=== PATIENT | female | born 1970 | race African-American/Black ===

== ENCOUNTER 2024-07-03 04:09 | Observation (INO) ==
--- NOTE | 2024-07-03 04:38 | Emergency Department Note ---
HPI - General Adult General Chief complaint: Abdominal Pain Stated complaint: ABDOMINAL PAIN Time Seen by Provider: 07/03/24 04:32 Source: patient Mode of arrival: ambulance Limitations: no limitations History of Present Illness HPI narrative: This is a 54 year old female patient that presents to the ER with c/o upper abdominal pain that radiates into her chest. Patinet denies any SOB, back pain, fever, cnills, numbness, tingiing, weakness or N/V/D Onset (ago): hour(s) (2) Location: Reports abdomen Radiation: Reports other (chest) Severity: mild Quality: Reports stabbing Pain Consistency: Reports constant Relieving factors: Reports none Exacerbating factors: Reports none Associated symptoms: Reports denies other symptoms Treatments prior to arrival: Reports none Related Data Allergies Allergy/AdvReac Type Severity Reaction Status Date / Time No Known Drug Allergies Allergy Verified 07/03/24 04:33 Review of Systems Status of ROS 10 or more systems reviewed and unremark able except as noted in history and below Constitutional Denies: fever, chills, change in weight, fatigue, malaise, night sweats or change in sleep pattern Eyes Denies: change in vision, blurry vision, blind spots, light sensitivity or eye discomfort Ears, nose, mouth, and throat Denies: throat pain, neck pain, throat swelling, difficulty swallowing, hoarseness, mouth pain or swelling of lips/tongue Cardiovascular Reports: chest pain; Denies: palpitations, edema, swelling of feet/ankles, lightheadedness or shortness of breath with exertion Respiratory Denies: shortness of breath, cough, wheezing, stridor, pain on inspiration or change in phlegm color Gastrointestinal Reports: abdominal pain; Denies: nausea, vomiting, coffee grounds in vomit, heartburn or diarrhea Genitourinary Denies: painful urination, urinary frequency, urinary urgency, urinary incontinence or blood in urine Musculoskeletal Denies: back pain, neck pain, extremity pain, extremity swelling or joint pain Integumentary/Breast Denies: rash, itching, redness, skin pain or skin tenderness Neurological Denies: headache, numbness in extremities, weakness in extremities or lack of coordination Psychiatric Denies: anxiety, mood swings, panic attacks, change in sleep pattern or hopelessness Endocrine Denies: excessive urination, excessive thirst, fatigue or cold intolerance Hematologic/Lymphatic Denies: easy bruising, easy bleeding or enlarged lymph nodes Allergic/Immunologic Denies: hives, throat swelling, tongue swelling, facial swelling or wheezing [facility]SH [facility] Medical History (Updated 07/03/24 @ 04:43 by Chiqui Jacobsen RN) Ectopic Fibromyalgia Colitis History of pulmonary embolism Pancreatitis Ascites Hypertension Acid reflux Seasonal allergies Anxiety Depression Surgical History (Updated 07/03/24 @ 04:43 by Chiqui Jacobsen RN) H/O exploratory laparotomy History of cholecystectomy Social History Smoking status: current every day smoker Within the past year, how often did you have a drink containing alcohol: never Score interpretation: A score less than 3 is consistent with normal alcohol consumption. Non-prescribed substance use: denies use Problems where you live: no known problems Exam Constitutional: normal general appearance and no apparent distress Vital Signs - 24 hr 07/03/24 04:09 07/03/24 04:09 Temperature 97.8 F Pulse Rate 88 Respiratory Rate 18 Blood Pressure 125/83 Pulse Oximetry 100 100 Oxygen Delivery Me thod Room Air Room Air HENMT: normocephalic, head/scalp atraumatic, hearing grossly normal bilaterally, external ears normal, nasal mucous membranes normal, external nose normal, oral mucous membranes normal and oropharynx normal Eyes: PERRL, EOMs intact bilaterally, conjunctivae normal and no scleral icterus Neck/C-Spine: visual inspection normal and trachea midline Lymph: no lymphadenopathy noted Chest: inspection of chest normal Respiratory: breath sounds equal bilaterally, normal respiratory effort, clear to auscultation bilaterally, no wheezes, no rales, no retractions and no use of accessory muscles Cardiovascular: normal heart rate noted, regular rhythm noted, no gallop, no rub, no murmur, no JVD, no clicks, peripheral pulses 2+ throughout and no additional abnormal heart sounds Gastrointestinal: abdomen normal to inspection, abdomen soft to palpation, tender to palpation (diffuse tenderness), nontender to percussion, nondistended, normoactive bowel sounds, no hepatosplenomegaly, no masses, no pulsatile mass, no ascites and no hernia Genitourinary: no CVA tenderness Back/Pelvis: spine normal to inspection Extremities: normal to inspection, normal to palpation, no tenderness, full ROM, no joint enlargement and no deformity Neurology: no movement abnormality noted, no focal motor deficit noted, no sensory deficits noted, speech normal, coordination normal, no fasciculations noted and GCS normal Psychiatry: mental status grossly normal, oriented x3, thought process normal, cooperative and affect normal Skin: skin color normal Course Course Hospital Course: 530: Spoke to Dr Dove and he agrees to admit patient for pancreatitis for further medical evaluation and treatment with pain control. VSS, no s/s of acute distress noted Vital Signs Vital signs: Vital Signs Temperature 97.8 F 07/03/24 04:09 Pulse Rate 88 07/03/24 04:09 Respiratory Rate 18 07/03/24 04:09 Blood Pressure 125/83 07/03/24 04:09 Pulse Oximetry 100 07/03/24 04:09 Oxygen Delivery Method Room Air 07/03/24 04:09 Temperature 97.8 F 07/03/24 04:09 Pulse Rate 88 07/03/24 04:09 Respiratory Rate 18 07/03/24 04:09 Blood Pressure 125/83 07/03/24 04:09 Pulse Oximetry 100 07/03/24 04:09 Oxygen Delivery Method Room Air 07/03/24 04:09 Medical Decision Making Differential Diagnosis Differential Diagnosis: viral illness Medical Records Medical records reviewed: Yes I reviewed the patient's medical records Lab Data Lab results reviewed: Yes I reviewed the patient's lab results Labs: Lab Results 07/03/24 07/03/24 Range/Units 04:15 04:50 WBC 9.5 H (4.3-9.3) K/uL RBC 4.8 (4.00-5.50) M/uL Hgb 12.1 L (12.5-15.8) gm/dL Hct 37.4 (35.9-46.7) % MCV 78.4 L (81.0-93.7) fl MCH 25.4 L (27.6-32.2) pg MCHC 32.4 L (33.1-35.3) g/dl RDW 18.1 H (11.4-14.2) % Plt Count 412 H (152-353) K/uL MPV 8.1 (6.9-10.8) fl Gran % 75.4 H (47.8-71.3) % Lymph % (Auto) 18.7 L (20.0-43.0) % [place] % (Auto) 4.0 (3.6-9.8) % Eos % (Auto) 1.3 (0.4-2.8) % Baso % (Auto) 0.6 (0.1-0.85) Lymph # (Auto) 1.8 (1.1-3.1) [place] # (Auto) 0.4 L (1.1-3.1) Eos # (Auto) 0.1 (0.0-0.2) Baso # (Auto) 0.1 (0.0-0.1) Absolute Gran (auto) 7.2 H (2.3-6.0) Urine Color Yellow (STRAW/YELL.) Urine Appearance Clear (CLEAR) Ur Specific [place] 1.010 (1.001-1.035) Urine Protein Negative (NEGATIVE) Urine Glucose (UA) Normal (NORMAL) Urine Ketones Negative (NEGATIVE) Urine Occult Blood Negative (NEG - TRACE) Urine Nitrite Negative (NEGATIVE) Urine Bilirubin Negative (NEGATIVE) Urine Urobilinogen Normal (NORMAL) Ur Leukocyte Esterase Negative (NEGATIVE) Fluid pH 7.5 (5 - 9) ECG Data Attestation: I have reviewed the pertinent ECG results. Discharge Plan Discharge Patient Disposition: Admitted As Observation Condition: Stable Chief Complaint: Abdominal Pain Clinical Impression: Pancreatitis Print Language: Bengali Referrals: Jakob Palafox [Primary Care Provider] - Time of Disposition: 05:34
[2024-07-03] MEDS: MORPHINE SULFATE 4 MG/ML CARTRIDGE IVP ONE (04:52)
[2024-07-03] MEDS ORDERED: ONDANSETRON HCL/PF 4 MG/2 ML VIAL ONE (04:56)
[2024-07-03] MEDS: ONDANSETRON HCL/PF 4 MG/2 ML VIAL IVP ONE ×2 (04:58→05:38)
[2024-07-03] MEDS: ACETAMINOPHEN 500 MG TABLET PO ONE (05:00)
[2024-07-03 05:03] LABS: PH BODY FLUID EXCP BLOOD 7.5 (5 - 9); Urine Appearance CLEAR (CLEAR); Urine Blood NEGATIVE (NEG - TRACE); Urine Color YELLOW (STRAW/YELL.); Urine Urobilinogen Normal (NORMAL)
[2024-07-03 05:08] LABS: Basophils #(Absolute) Auto 0.1 (0.0-0.1); Basophils%(Percent) Auto 0.6 (0.1-0.85); Eosinophils#(Absolute)Auto 0.1 (0.0-0.2); Eosinophils%(Percent) Auto 1.3 % (0.4-2.8); Granulocytes % - Auto 75.4 % (47.8-71.3); Granulocytes#(Absolute)- Auto 7.2 (2.3-6.0); Hematocrit 37.4 % (35.9-46.7); Mean Corpuscular Volume 78.4 fl (81.0-93.7); Monocytes #(Absolute)- Auto 0.4 (1.1-3.1); Platelet Count 412 K/uL (152-353); White Blood Count 9.5 K/uL (4.3-9.3)
[2024-07-03] MEDS ORDERED: ACETAMINOPHEN 500 MG TABLET PO PRN (06:24)
[2024-07-03] MEDS ORDERED: bisacodyL 10 MG SUPP.RECT PR PRN (06:24)
[2024-07-03] MEDS ORDERED: MAGNESIUM, ALUMINUM HYDROXIDE 30 ML ORAL.SUSP PO PRN (06:24)
[2024-07-03 07:20] LABS: Potassium 3.7 mmol/L (3.6-5.2)
[2024-07-03 08:11] VITALS: RESP 19; TEMP 97.9
[2024-07-03] MEDS: 0.9 % SODIUM CHLORIDE 1000 ML 1,000 ML IV SCH (08:50)
--- NOTE | 2024-07-03 10:55 | Internal Medicine H&P ---
Internal Medicine - H&P: HPI History of Present Illness Chief complaint: PANCREATITIS Narrative: Admitted from home through the ER due to nausea, vomiting, and epigastric pain. Similar cases in MAR/APR 2024 due to pancreatitis. Was advised she had high triglycerides, but uncertatin of number and only taking omega-3 fish oils. Currently reports improved nausea with continued pain. Tolerating a diet, but only limited amounts. Review of Systems Status of ROS 10 or more systems reviewed and unremark able except as noted in history and below Constitutional Denies: fever, chills, change in weight, fatigue, malaise, night sweats or change in sleep pattern Eyes Denies: change in vision, blurry vision, blind spots, light sensitivity or eye discomfort Ears, nose, mouth, and throat Denies: throat pain, neck pain, throat swelling, difficulty swallowing, hoarseness, mouth pain or swelling of lips/tongue Cardiovascular Reports: chest pain; Denies: palpitations, edema, swelling of feet/ankles, lightheadedness or shortness of breath with exertion Respiratory Denies: shortness of breath, cough, wheezing, stridor, pain on inspiration or change in phlegm color Gastrointestinal Reports: abdominal pain; Denies: nausea, vomiting, coffee grounds in vomit, heartburn, diarrhea or difficulty swallowing Genitourinary Denies: painful urination, urinary frequency, urinary urgency, urinary incontinence or blood in urine Musculoskeletal Denies: back pain, neck pain, extremity pain, extremity swelling or joint pain Integumentary/Breast Denies: rash, itching, redness, skin pain or skin tenderness Neurological Denies: headache, numbness in extremities, weakness in extremities or lack of coordination Psychiatric Denies: anxiety, mood swings, panic attacks, change in sleep pattern or hopelessness Endocrine Denies: excessive urination, excessive thirst, fatigue or cold intolerance Hematologic/Lymphatic Denies: easy bruising, easy bleeding or enlarged lymph nodes Allergic/Immunologic Denies: hives, throat swelling, tongue swelling, facial swelling or wheezing [facility] Medical History (Updated 07/03/24 @ 12:56 by Victor Hugo Dove MD) Ectopic Fibromyalgia Colitis History of pulmonary embolism Pancreatitis Ascites Hypertension Acid reflux Seasonal allergies Anxiety Depression Surgical History (Updated 07/03/24 @ 04:43 by Chiqui Jacobsen RN) H/O exploratory laparotomy History of cholecystectomy Social History Smoking status: current every day smoker Within the past year, how often did you have a drink containing alcohol: never Score interpretation: A score less than 3 is consistent with normal alcohol consumption. Non-prescribed substance use: denies use Problems where you live: no known problems Highest level of school completed/degree received: high school Meds Home Medications and Allergies Home Medications Medication Instructions Recorded Confirmed Type allopurinol 300 mg tablet 300 mg PO DAILY 07/03/24 07/03/24 History amitriptyline 50 mg tablet 50 mg PO DAILY 07/03/24 07/03/24 History escitalopram oxalate 20 mg tablet 20 mg PO DAILY 07/03/24 07/03/24 History folic acid 1 mg tablet 1 mg PO DAILY 07/03/24 07/03/24 History levocetirizine 5 mg tablet 5 mg PO DAILY 07/03/24 07/03/24 History lisinopril 20 mg tablet 20 mg PO DAILY 07/03/24 07/03/24 History metoprolol succinate 100 mg 100 mg PO DAILY 07/03/24 07/03/24 History tablet,extended release 24 hr montelukast 10 mg tablet 10 mg PO DAILY 07/03/24 07/03/24 History naltrexone 50 mg tablet 50 mg PO DAILY 07/03/24 07/03/24 History pantoprazole 40 mg tablet,delayed 40 mg PO DAILY 07/03/24 07/03/24 History release pregabalin 75 mg capsule 75 mg PO Q12H 07/03/24 07/03/24 History rivaroxaban 20 mg tablet (Xarelto) 20 mg PO DAILY 07/03/24 07/03/24 History Allergies Allergy/AdvReac Type Severity Reaction Status Date / Time No Known Drug Allergies Allergy Verified 07/03/24 04:33 Exam Constitutional: normal general appearance, no apparent distress, average body habitus, no limitations and alert Vital Signs - 24 hr 07/03/24 04:09 07/03/24 04:09 07/03/24 05:00 Temperature 97.8 F Pulse Rate 88 83 Pulse Rate [Right Carotid] Respiratory Rate 18 16 Blood Pressure 125/83 117/89 Blood Pressure [Le ft Arm] Pulse Oximetry 100 100 99 Oxygen Delivery Me thod Room Air Room Air Room Air 07/03/24 05:30 07/03/24 06:00 07/03/24 06:24 Temperature 97.7 F 98 F Pulse Rate 80 76 Pulse Rate [Right Carotid] 78 Respiratory Rate 16 16 19 Blood Pressure 133/94 123/82 Blood Pressure [Le ft Arm] 106/87 Pulse Oximetry 97 98 94 L Oxygen Delivery Tn thod Room Air Room Air 07/03/24 08:10 Temperature 97.9 F Pulse Rate Pulse Rate [Right Carotid] 82 Respiratory Rate 19 Blood Pressure Blood Pressure [Le ft Arm] 116/74 Pulse Oximetry 94 L Oxygen Delivery Tn thod Room Air HENMT: normocephalic, head/scalp atraumatic, hearing grossly normal bilaterally and external ears normal Eyes: PERRL, EOMs intact bilaterally and conjunctivae normal Neck/C-Spine: visual inspection normal and trachea midline Respiratory: breath sounds equal bilaterally, normal respiratory effort, clear to auscultation bilaterally and no wheezes Cardiovascular: normal heart rate noted, regular rhythm noted and no murmur Gastrointestinal: abdomen normal to inspection, abdomen soft to palpation, tender to palpation (mild) and (epigastric), nondistended and normoactive bowel sounds Back/Pelvis: thoracic spine ROM normal and lumbar spine ROM normal Extremities: normal to inspection and normal to palpation Neurology: 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-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, no focal motor deficit noted and speech normal Psychiatry: mental status grossly normal, oriented x3, thought process normal, cooperative, affect normal, psychomotor activity normal and memory normal Internal Medicine - H&P: Reslt Labs Labs: CBC WBC 9.5 K/uL (4.3-9.3) H 07/03/24 04:50 RBC 4.8 M/uL (4.00-5.50) 07/03/24 04:50 Hgb 12.1 gm/dL (12.5-15.8) L 07/03/24 04:50 Hct 37.4 % (35.9-46.7) 07/03/24 04:50 MCV 78.4 fl (81.0-93.7) L 07/03/24 04:50 MCH 25.4 pg (27.6-32.2) L 07/03/24 04:50 MCHC 32.4 g/dl (33.1-35.3) L 07/03/24 04:50 RDW 18.1 % (11.4-14.2) H 07/03/24 04:50 Plt Count 412 K/uL (152-353) H 07/03/24 04:50 MPV 8.1 fl (6.9-10.8) 07/03/24 04:50 Gran % 75.4 % (47.8-71.3) H 07/03/24 04:50 Lymph % (Auto) 18.7 % (20.0-43.0) L 07/03/24 04:50 [place] % (Auto) 4.0 % (3.6-9.8) 07/03/24 04:50 Eos % (Auto) 1.3 % (0.4-2.8) 07/03/24 04:50 Baso % (Auto) 0.6 (0.1-0.85) 07/03/24 04:50 Lymph # (Auto) 1.8 (1.1-3.1) 07/03/24 04:50 [place] # (Auto) 0.4 (1.1-3.1) L 07/03/24 04:50 Eos # (Auto) 0.1 (0.0-0.2) 07/03/24 04:50 Baso # (Auto) 0.1 (0.0-0.1) 07/03/24 04:50 Absolute Gran (auto) 7.2 (2.3-6.0) H 07/03/24 04:50 BMP Sodium 134 mmol/L (136-145) L 07/03/24 04:50 Potassium 3.7 mmol/L (3.6-5.2) 07/03/24 04:50 Chloride 98.0 mmol/L (98-107) 07/03/24 04:50 Carbon Dioxide 28 mmol/L (21-32) 07/03/24 04:50 Anion Gap 8.0 mEq/L (4-14) 07/03/24 04:50 BUN 12 mg/dL (7-18) 07/03/24 04:50 Creatinine 1.2 mg/dL (0.6-1.3) 07/03/24 04:50 Estimated GFR 54.1 (>59.9) 07/03/24 04:50 Glucose 133 mg/dL (70-110) H 07/03/24 04:50 Calcium 9.2 mg/dL (8.5-10.1) 07/03/24 04:50 Cardiac Enzymes Troponin I High Sens <4.00 ng/L (4.0-60.4) L 07/03/24 04:50 Urine Urine Color Yellow (STRAW/YELL.) 07/03/24 04:15 Urine Appearance Clear (CLEAR) 07/03/24 04:[address] 1.010 (1.001-1.035) 07/03/24 04:15 Urine Protein Negative (NEGATIVE) 07/03/24 04:15 Urine Glucose (UA) Normal (NORMAL) 07/03/24 04:15 Urine Ketones Negative (NEGATIVE) 07/03/24 04:15 Urine Occult Blood Negative (NEG - TRACE) 07/03/24 04:15 Urine Nitrite Negative (NEGATIVE) 07/03/24 04:15 Urine Bilirubin Negative (NEGATIVE) 07/03/24 04:15 Urine Urobilinogen Normal (NORMAL) 07/03/24 04:15 Ur Leukocyte Esterase Negative (NEGATIVE) 07/03/24 04:15 Assessment and Plan Assessment and Plan (1) Acute pancreatitis: Qualifiers: Pancreatitis type: idiopathic Acute pancreatitis complication: no infection or necrosis Qualified Code(s): K85.00 - Idiopathic acute pancreatitis without necrosis or infection Code(s): K85.90 - Acute pancreatitis without necrosis or infection, unspecified Plan IVFs, IV toradol and morphine prn, low-fat diet. Likely home tomorrow.
[2024-07-03] MEDS ORDERED: ONDANSETRON HCL/PF 4 MG/2 ML VIAL INJ PRN (11:30)
[2024-07-03] MEDS ORDERED: KETOROLAC 30 MG/ML INJ VIAL IVP PRN (12:21)
[2024-07-03] MEDS: MORPHINE SULFATE 2 MG/ML CARTRIDGE IV PRN (12:22)
[2024-07-03 13:16] VITALS: BP 109/71; PULSE 74
== END 2024-07-03 15:28 | disposition home or self-care (01) ==
LOC: MS 04:09 → ED 04:09 → MS 06:00
PROVIDERS: ADMIT Nurse Practitioner Family; ATTEND Family Medicine